=== PATIENT | male | born 1945 | race Caucasian/White ===

== ENCOUNTER → 2017-01-10 | Outpatient (CLI) | payer MEDICARE, OTHER | END | disposition home or self-care (01) | LOC: GMAB 10:58 | PROVIDERS: ATTEND Family Medicine | DX: N40.1 Benign prostatic hyperplasia with lower urinary tract symptoms (principal); I10 Essential (primary) hypertension; R53.82 Chronic fatigue, unspecified; Z12.5 Encounter for screening for malignant neoplasm of prostate; M10.9 Gout, unspecified | CPT/HCPCS: 84403; 84439; 84443; 84481; 84550; G0103 ==

== ENCOUNTER → 2017-06-30 | Outpatient (CLI) | payer MEDICARE, OTHER ==
--- NOTE | 2017-07-03 08:33 | MRI ---
Study: MRI of the Right Shoulder. Indication: ACUTE PAIN. Fall injury several weeks ago. Technique: Multiplanar, multi sequence MRI of the right shoulder was obtained without intravenous contrast. Comparison: None. Findings: Severe hypertrophic AC joint osteoarthritis with reactive marrow edema distal clavicular and acromion. Moderate size joint effusion. Mild type III acromion without downsloping. Small-volume subacromial/subdeltoid bursal fluid. AC joint alignment is normal. There is however pericapsular edema as well as evidence of age-indeterminate partial thickness tearing and undulation of the coracoclavicular ligament. Supraspinatus and infraspinatus tendinosis noted with irregular high-grade articular/interstitial tearing throughout the critical zone of the fullwidth of the supraspinatus tendon and anterior half of the infraspinatus tendon. The tear defect is largely filled with granulation tissue. No tendon retraction. High grade articular tearing superior two thirds subscapularis tendon. Teres minor tendon intact. Minimal atrophy and grade 1 fatty infiltration subscapularis muscle belly. Long head biceps tendinosis and attenuation with suspected high-grade tearing of the intracapsular portion. Circumferential labral truncation/degeneration. Mild glenohumeral joint osteoarthritis. Small glenohumeral joint effusion. No acute fracture. There is edema tracking within the right axilla along the superficial margin of the subscapular tendon muscle belly extending both proximally and distally. The pectoralis major tendon is not visualized within the [id number], and its integrity cannot be confirmed by this examination. Impression: High grade articular/interstitial tearing of the supraspinatus and infraspinatus tendons as above. High-grade articular tearing superior two thirds of the subscapularis tendon insertion. Minimal atrophy and grade 1 fatty infiltration subscapularis muscle belly. Long head biceps tendinosis and attenuation with suspected high-grade tearing of the intracapsular portion. Circumferential labral truncation/degeneration. Mild glenohumeral joint osteoarthritis. Severe hypertrophic AC joint osteoarthritis. An age-indeterminate AC joint injury has likely occurred as there is at least partial thickness tearing of the coracoclavicular ligament. AC joint alignment is however normal. Edema within the right axilla as above. Clinical correlation recommended for possible pectoralis injury. Electronically signed by: Primitivo Pedroza MD 07/03/2017 8:32 AM [facility]
== END | disposition home or self-care (01) ==
LOC: MRI 14:00
DX: M19.011 Primary osteoarthritis, right shoulder (principal)

== ENCOUNTER → 2017-09-28 | Outpatient (CLI) | payer MEDICARE, OTHER | LOC: GMAB 14:37 | PROVIDERS: ATTEND Family Medicine | DX: M10.9 Gout, unspecified (principal) ==

== ENCOUNTER → 2018-04-24 | Outpatient (CLI) | payer MEDICARE, OTHER ==
--- NOTE | 2018-04-24 11:18 | MRI ---
MRI left shoulder without contrast INDICATION: Shoulder pain rotator cuff tear lifting injury TECHNIQUE: Noncontrast MR imaging left shoulder FINDINGS: There is a macerated appearing long head bicep high-grade partial to full-thickness. There is a very thin residual tendon identified in the proximal bicipital groove. There is severe thinning of the subscapularis indicating diffuse high-grade partial tear with possible detachment from the lesser tuberosity. Mild cystic change in the proximal humerus near the supraspinatus insertional tear. Moderate hypertrophic AC joint osteoarthrosis. Full-thickness retracted tear at the junction of the critical zone and insertional supraspinatus tendon with adjacent mild to moderate bursitis. Prominent interstitial tendinosis and lower grade partial tear infraspinatus tendon No marked retraction. Diffuse labral degeneration is noted with mild to moderate glenohumeral osteoarthrosis. Considerable volume loss throughout the labrum. Minimal grade 1 marbling of the rotator cuff muscle bellies. IMPRESSION: Effectively full-thickness nonretracted tear distal supraspinatus with adjacent cystic change in the humerus High-grade partial tears of the subscapularis and infraspinatus with background tendinosis Mild to moderate glenohumeral osteoarthrosis with diffuse labral degeneration Moderate hypertrophic AC joint arthrosis with prominent fluid and mild dorsal cystic change Diffuse high-grade partial to full-thickness long head bicep tear No end-stage atrophy Electronically signed by: Alfredo Altamirano MD 04/24/2018 11:16 AM CDT
== END ==
LOC: MRI 08:00
PROVIDERS: ATTEND Orthopaedic Surgery
DX: M75.102 Unspecified rotator cuff tear or rupture of left shoulder, not specified as traumatic (principal); M19.012 Primary osteoarthritis, left shoulder

== ENCOUNTER → 2018-07-13 | Outpatient (CLI) | payer MEDICARE, OTHER ==
--- NOTE | 2018-07-14 06:29 | US ---
EXAM DESCRIPTION: Renal: Ultrasound. CLINICAL HISTORY: 72 years Male CYST LEFT KIDNEY COMPARISON: Bilateral renal arterial Doppler evaluation on the same visit. TECHNIQUE: Transcutaneous scanning: Two-dimensional and Doppler modes. FINDINGS: Right kidney measures 10.5 x 5.8 x 5.7 cm; mid-renal cortical thickness normal range. . Normal echogenicity. No hydronephrosis No echogenic stones. Smooth contour of the kidney with no perinephric fluid. Normal vascularity. Proximal ureter not visualized. Left kidney measures 6.1 x 5.7 x 5.3 cm; mid-renal cortical thickness 1.3 cm.. Increased echogenicity.. 5.0 x 4.5 x 4.0 cm anechoic cyst on the lower pole. No hydronephrosis. No echogenic stones. Smooth contour of the kidney with no perinephric fluid. Normal vascularity.. Proximal ureter not visualized. Urinary bladder not visualized. Abdominal aorta diameter not measured.. IMPRESSION: 1. Right kidney is unremarkable. 2. Left kidney not well visualized small with minimal cortical thinning. No hydronephrosis. No perinephric fluid. 5 cm cyst on the lower pole. Electronically signed by: Osbaldo Hernandez MD 07/14/2018 6:28 AM [employer] [employer]
== END ==
LOC: US 08:30
PROVIDERS: ATTEND Physician Assistant Medical
DX: N28.1 Cyst of kidney, acquired (principal); M47.816 Spondylosis without myelopathy or radiculopathy, lumbar region; M51.36 Other intervertebral disc degeneration, lumbar region

== ENCOUNTER → 2019-05-07 | Outpatient (CLI) | payer MEDICARE, OTHER | LOC: GMAE 10:37 | PROVIDERS: ATTEND Family Medicine | DX: R97.20 Elevated prostate specific antigen [PSA] (principal); I10 Essential (primary) hypertension; M10.9 Gout, unspecified ==

== ENCOUNTER → 2020-05-29 | Outpatient (CLI) | payer MEDICARE, OTHER | LOC: GMAE 12:46 | PROVIDERS: ATTEND Family Medicine | DX: M10.9 Gout, unspecified (principal); Z12.5 Encounter for screening for malignant neoplasm of prostate; I10 Essential (primary) hypertension; E78.2 Mixed hyperlipidemia | CPT/HCPCS: 84443; 84550; G0103 ==